=== PATIENT | female | born 1995 | race Caucasian/White ===

== ENCOUNTER 2018-07-30 05:10 | Inpatient (IN) | payer OTHER ==
[~2018-07-30 05:10] MED LIST: DEXTROSE 5%-LACTATED RINGERS 1,000 ML IV SCH
[2018-07-30 05:58] VITALS: BMI 46.6
[2018-07-30 06:17] LABS: BASO % 0.5 % (0-2.0); EOS % 0.8 % (0-4.5); HEMATOCRIT 37.9 % (32.4-45.2); HEMOGLOBIN 12.8 GM/dL (10.7-15.3); LYMPH % 16.6 % (8-40); MCH 28.2 pg (25.7-33.7); MCHC 33.7 g/dl (32.0-36.0); MEAN CELL VOLUME 83.6 fl (80-96); MEAN PLT VOLUME 9.6 fl (7.5-11.1); MONO % 6.1 % (3.8-10.2); PLATELET COUNT 241 K/MM3 (134-434); RBC 4.54 M/mm3 (3.60-5.2); RDW 15.7 % (11.6-15.6); WHITE BLOOD COUNT 12.2 K/mm3 (4.0-10.0)
[2018-07-30] MEDS ORDERED: BUTORPHANOL TARTRATE 1 MG/ML VIAL ONE ×2 (06:24)
[2018-07-30] MEDS ORDERED: PROMETHAZINE HCL 25 MG/1 ML VIAL ONE (06:24)
[2018-07-30 06:28] LABS: INR 1.04 (0.83-1.09); PROTHROMBIN TIME (PATIENT) 11.7 SEC (9.7-13.0)
[2018-07-30 06:31] LABS: ACTIVATED PTT 27.2 SECONDS (25.2-36.5)
[2018-07-30 06:40] LABS: ANION GAP 11 MMOL/L (8-16); BLOOD UREA NITROGEN 14 mg/dL (7-18); CALCIUM 10.4 mg/dL (8.5-10.1); CHLORIDE 107 mmol/L (98-107); CO2 20 mmol/L (21-32); CREATININE 0.7 mg/dL (0.55-1.3); GLUCOSE,RANDOM 101 mg/dL (74-106); POTASSIUM 4.3 mmol/L (3.5-5.1); SODIUM 138 mmol/L (136-145)
[2018-07-30] MEDS ORDERED: BUTORPHANOL TARTRATE 1 MG/ML VIAL IVPB ONE (06:45)
[2018-07-30] MEDS ORDERED: PROMETHAZINE HCL 25 MG/1 ML VIAL IVPB ONE (06:45)
[2018-07-30] MEDS: ELECTROLYTE-148 SOLN 1,000 ML IV SCH ×3 (07:30→15:03)
[2018-07-30] MEDS ORDERED: FENTANYL/BUPIVACAINE/NS/PF - PCEA - 50 ML DISP.SYRIN EP ONE ×3 (07:31→13:09)
[2018-07-30] MEDS ORDERED: BUPIVACAINE HCL/PF 0.25% (2.5MG/ML) 10 ML VIAL ONE (07:33)
--- NOTE | 2018-07-30 07:42 | HP ---
Past Medical History - Admission Chief Complaint: Labor pain History of Present Illness: 22 yo , @ 40 weeks gestation, EDC 07/29/18, admitted for Labor pain. History Source: Patient Limitations to Obtaining History: No Limitations - Past Medical History ...: 1 ...Para: 0 ...Term: 0 ...: 0 ...Spon : 0 ...Induced : 0 ...Multiple Gestation: 0 ...LMP: 10/22/17 ... Weeks Gestation by Dates: 40.1 ...EDC by Dates: 07/29/18 ...EDC by Sono: 07/29/18 - Past Surgical History Past Surgical History: Yes: None Hx Myomectomy: No Hx Transabdominal Cerclage: No - Smoking History Smoking history: Never smoked Have you smoked in the past 12 months: No - Alcohol/Substance Use Hx Alcohol Use: No History of Substance Use: reports: None - Social History History of Recent Travel: No Home Medications - Allergies Allergies/Adverse Reactions: Allergies Allergy/AdvReac Type Severity Reaction Status Date / Time No Known Allergies Allergy Verified 07/30/18 05:41 - Home Medications Home Medications: Ambulatory Orders Ferrous Sulfate [Iron] 325 mg PO DAILY 07/30/18 Vitamins (Sjr) - 1 tab PO DAILY 07/30/18 Family Disease History - Family Disease History Family History: Unremarkable Review of Systems - Review of Systems Constitutional: reports: No Symptoms Eyes: reports: No Symptoms HENT: reports: No Symptoms Neck: reports: No Symptoms Cardiovascular: reports: No Symptoms Gastrointestinal: reports: No Symptoms Genitourinary: reports: Pain Breasts: reports: No Symptoms Reported Musculoskeletal: reports: No Symptoms Integumentary: reports: No Symptoms Neurological: reports: No Symptoms Endocrine: reports: No Symptoms Hematology/Lymphatic: reports: No Symptoms Psychiatric: reports: No Symptoms Pain Intensity: 8 Physical Exam - Maternity Vital Signs: Vital Signs Temperature 98.4 F 07/30/18 07:00 Pulse Rate 87 07/30/18 07:00 Respiratory Rate 20 07/30/18 07:00 Blood Pressure 134/79 07/30/18 07:00 O2 Sat by Pulse Oximetry (%) Constitutional: Yes: Well Nourished Eyes: Yes: Conjunctiva Clear HENT: Yes: Atraumatic Neck: Yes: Supple Cardiovascular: Yes: Regular Rate and Rhythm Lungs: Clear to auscultation - Abdominal Exam/OB Number of Fetuses: Single Presentation: Vertex Intensity: Mod/Strong - Vaginal Exam/OB Presentation: Vertex/Position Station: -1 - Physical Exam Musculoskeletal: Yes: WNL Extremities: Yes: WNL Integumentary: Yes: WNL ...Motor Strength: WNL Psychiatric: Yes: Alert, Oriented - Labs Lab Results: CBC, BMP 07/30/18 05:50 07/30/18 05:50 Problem List - Problems (1) Pain during labor Code(s): O99.89 - OTH DISEASES AND CONDITIONS COMPL PREG/CHLDBRTH; R52 - PAIN, UNSPECIFIED Assessment/Plan Active labor Admit to L&D Analgesia as needed Anticipate
[2018-07-30] MEDS ORDERED: DEXTROSE 5%-LACTATED RINGERS 1,000 ML IV SCH (07:45)
[2018-07-30] MEDS ORDERED: NALOXONE HCL 0.4 MG/ML VIAL IVPUSH PRN (08:02)
[2018-07-30] MEDS ORDERED: FENTANYL/BUPIVACAINE/NS/PF - PCEA - 50 ML DISP.SYRIN EP SCH (08:15)
[2018-07-30] MEDS ORDERED: OXYTOCIN 30 UNITS in 0.9% NS 30 UNIT/500 ML INFUS.BAG IVPB ONE (11:58)
[2018-07-30] MEDS ORDERED: BUPIVACAINE HCL/PF 0.5% (5MG/ML) 10 ML VIAL ONE (13:56)
[2018-07-30] MEDS ORDERED: OXYTOCIN 20 UNITS in 0.9% NS 40 UNIT/2,000 ML INFUS.BAG IV ONE (14:02)
[2018-07-30] MEDS ORDERED: BENZOCAINE 28 GM HEMORRHOIDAL OINTMENT TP PRN (17:07)
[2018-07-30] MEDS ORDERED: METHYLERGONOVINE MALEATE 0.2 MG/1 ML AMP IM PRN (17:07)
[2018-07-30] MEDS ORDERED: WITCH HAZEL 50% (TUCKS) 40 PAD/JAR PAD TP PRN (17:07)
[2018-07-30] MEDS ORDERED: BISACODYL 10 MG SUPP.RECT RC PRN (17:07)
[2018-07-30] MEDS ORDERED: BENZOCAINE 20% 57 GM BOTTLE TP PRN (17:07)
--- NOTE | 2018-07-30 17:07 | PN ---
Delivery - Delivery Vaginal Delivery: Vacuum Extraction Type of Anesthesia: Epidural Episiotomy/Laceration: None, 1st degree EBL (cc): 350 Delivery, Single - [place] Feeding Plan Initial Plan: Exclusive throughout hospitalization Remarks - Remarks Remarks: Mother fully dilated. head at +1 station. After pushing for more than one hour, she became exhausted. After extensive discussion, decision made to switch to vacuum extraction. Consent signed. Vacuum applied, with one attempt head was delivered. Nuchal cord x 1 clamped and cut. Baby handed to neonatology nurse.
[2018-07-30] MEDS ORDERED: OXYTOCIN 20 UNITS in 0.9% NS 20 UNIT/1,000 ML INFUS.BAG IV SCH (17:15)
[2018-07-30] MEDS ORDERED: OXYTOCIN 30 UNITS in 0.9% NS 30 UNIT/500 ML INFUS.BAG IVPB SCH (17:30)
[2018-07-30] MEDS ORDERED: LIDOCAINE HCL 1% PRESERVATIVE FREE - 30ML VIAL ONE (17:32)
[2018-07-30] MEDS: FERROUS SO4 325 MG TABLET (FP) PO SCH (18:35)
[2018-07-30] MEDS: ACETAMINOPHEN 325 MG TABLET (FP) PO PRN (19:57)
[2018-07-30] MEDS: IBUPROFEN 600 MG TABLET (FP) PO PRN (19:57)
[2018-07-31 07:57] LABS: BASO % 0.1 % (0-2.0); EOS % 0.1 % (0-4.5); HEMATOCRIT 31.4 % (32.4-45.2); HEMOGLOBIN 10.7 GM/dL (10.7-15.3); LYMPH % 13.3 % (8-40); MCH 28.9 pg (25.7-33.7); MCHC 33.9 g/dl (32.0-36.0); MEAN CELL VOLUME 85.2 fl (80-96); MEAN PLT VOLUME 9.1 fl (7.5-11.1); MONO % 5.9 % (3.8-10.2); NEUT % 80.6 % (42.8-82.8); PLATELET COUNT 204 K/MM3 (134-434); RBC 3.69 M/mm3 (3.60-5.2); RDW 15.5 % (11.6-15.6); WHITE BLOOD COUNT 14.9 K/mm3 (4.0-10.0)
[2018-07-31] MEDS: ACETAMINOPHEN 325 MG TABLET (FP) PO PRN ×2 (09:26→20:22)
[2018-07-31] MEDS: FERROUS SO4 325 MG TABLET (FP) PO SCH ×2 (09:26→18:42)
[2018-07-31] MEDS: PRENATAL VITAMINS W/ FOLIC ACID TABLET (FP) PO SCH (09:26)
[2018-07-31] MEDS: IBUPROFEN 600 MG TABLET (FP) PO PRN ×2 (09:27→20:22)
--- NOTE | 2018-07-31 10:52 | PN ---
Post Progress Note - Subjective Subjective: 22 yo Para 1 status post vacuum assisted vaginal delivery, seen and evaluated. She's out of bed to chair, pumping. Doing well Post Day: 1 Type of Delivery: Vacuum Assist Vag Del Vital Signs: Vital Signs Temperature 97.5 F L 07/31/18 06:00 Pulse Rate 93 H 07/31/18 06:00 Respiratory Rate 18 07/31/18 06:00 Blood Pressure 132/70 07/31/18 06:00 O2 Sat by Pulse Oximetry (%) 100 07/30/18 17:45 Breast Exam: Yes: Soft Uterus: Yes: Fundus Firm Abdomen/GI: Yes: Abdomen soft, Tolerating PO Lochia: Yes: Rubra Lochia, amount: Moderate Extremities: Yes: Calves non-tender Perineum: Yes: Laceration (+swelling of the peritoneum) Activity: Ambulating - Labs Labs: CBC WBC 14.9 K/mm3 (4.0-10.0) H 07/31/18 07:10 RBC 3.69 M/mm3 (3.60-5.2) 07/31/18 07:10 Hgb 10.7 GM/dL (10.7-15.3) 07/31/18 07:10 Hct 31.4 % (32.4-45.2) L D 07/31/18 07:10 MCV 85.2 fl (80-96) 07/31/18 07:10 MCH 28.9 pg (25.7-33.7) 07/31/18 07:10 MCHC 33.9 g/dl (32.0-36.0) 07/31/18 07:10 RDW 15.5 % (11.6-15.6) 07/31/18 07:10 Plt Count 204 K/MM3 (134-434) 07/31/18 07:10 MPV 9.1 fl (7.5-11.1) 07/31/18 07:10 Absolute Neuts (auto) 12.0 K/mm3 (1.5-8.0) H 07/31/18 07:10 Neutrophils % 80.6 % (42.8-82.8) 07/31/18 07:10 Lymphocytes % 13.3 % (8-40) 07/31/18 07:10 Monocytes % 5.9 % (3.8-10.2) 07/31/18 07:10 Eosinophils % 0.1 % (0-4.5) D 07/31/18 07:10 Basophils % 0.1 % (0-2.0) 07/31/18 07:10 Nucleated RBC % 0 % (0-0) 07/31/18 07:10 Problem List - Problems (1) Pain during labor Code(s): O99.89 - OTH DISEASES AND CONDITIONS COMPL PREG/CHLDBRTH; R52 - PAIN, UNSPECIFIED (2) Status post vacuum-assisted vaginal delivery Code(s): Z87.42 - PERSONAL HISTORY OF OTH DISEASES OF THE FEMALE GENITAL TRACT Assessment/Plan Status post vacuum assisted vaginal delivery Stable Ice pack to perineum Continue observation
[2018-07-31] MEDS ORDERED: SENNOSIDES/DOCUSATE COMBO (SENNA PLUS) TABLET (UD) PO PRN (22:00)
--- NOTE | 2018-08-01 07:38 | DS ---
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..Post : Yes: Uterus firm, Moderate lochia serosa Breast(s): Yes: WNL Musculoskeletal: Yes: WNL Extremities: Yes: WNL Neurological: Yes: Alert, Oriented ...Motor Strength: WNL Psychiatric: Yes: Alert, Oriented Labs: CBC, BMP 07/31/18 07:10 07/30/18 05:50 Delivery - Delivery Vaginal Delivery: Vacuum Extraction Type of Anesthesia: Epidural Episiotomy/Laceration: None, 1st degree EBL (cc): 350 Delivery, Single - Stages of Labor Date 1st Stage Initiatied: 07/30/18 Time 1st Stage Initiated: 03:45 Date 2nd Stage Initiated: 07/30/18 Time 2nd Stage Initiated: 14:10 Date of Delivery: 07/30/18 Time of Delivery: 16:35 Time Placenta Delivered: 16:40 - Condition of Infant Office Communication Professor/Industrial Relations Analyst Present: No Gender: Female Weight: 7 lb 3 oz Position: OP Total Hours ROM (Hrs/Mins): 9hrs 15min - 1 Minute Total Score: 5 5 Minutes Total Score: 7 - Feeding Plan Initial Plan: Exclusive throughout hospitalization Discharge Summary Reason For Visit: LABOR Current Active Problems Pain during labor (Acute) Status post vacuum-assisted vaginal delivery (Acute) Procedures: Principal: Vacuum assisted vaginal delivery Hospital Course: Routine care Condition: Good - Instructions Diet, Activity, Other Instructions: Regular diet No douching, no sexual intercourse x 6 weeks F/U in clinic in 6 weeks Disposition: HOME - Home Medications Comprehensive Discharge Medication List: Ambulatory Orders Ferrous Sulfate [Iron] 325 mg PO DAILY 07/30/18 Vitamins (Sjr) - 1 tab PO DAILY 07/30/18
[2018-08-01] MEDS: FERROUS SO4 325 MG TABLET (FP) PO SCH (07:59)
[2018-08-01 08:24] VITALS: BP 129/75; PULSE 82; TEMP 98.2
[2018-08-01] MEDS: IBUPROFEN 600 MG TABLET (FP) PO PRN (09:24)
[2018-08-01] MEDS: PRENATAL VITAMINS W/ FOLIC ACID TABLET (FP) PO SCH (09:25)
== END 2018-08-01 14:15 | disposition home or self-care (01) | DRG 560 ==
LOC: JLDR 05:10 → J3W 18:48
PROVIDERS: ADMIT Obstetrics & Gynecology; ATTEND Obstetrics & Gynecology
PROC: 10D07Z6 Extraction of Products of Conception, Vacuum, Via Natural or Artificial Opening (ICD-10-PCS; principal; 2018-07-30)
PROC: 0W8NXZZ Division of Female Perineum, External Approach (ICD-10-PCS; 2018-07-30)
PROC: 0HQ9XZZ Repair Perineum Skin, External Approach (ICD-10-PCS; 2018-07-30)
DX: O70.0 First degree perineal laceration during delivery (principal); Z3A.40 40 weeks gestation of pregnancy; O99.213 Obesity complicating pregnancy, third trimester; E66.9 Obesity, unspecified; Z68.42 Body mass index [BMI] 45.0-49.9, adult; Z37.0 Single live birth
CPT/HCPCS: 36415; 59409; 80048; 85025; 85610; 85730; 86593; 86850; 86870; 86900; 86901; 86902; 87389